=== PATIENT | male | born 1955 | race Caucasian/White ===

== ENCOUNTER → 2019-06-13 | Outpatient (CLI) | payer BC ==
[2019-06-13 12:38] LABS: CREATININE 0.8 mg/dL (0.7-1.3)
== END ==
LOC: CAT 11:20
PROVIDERS: Nurse Practitioner
DX: K57.30 Diverticulosis of large intestine without perforation or abscess without bleeding (principal); K76.89 Other specified diseases of liver; I71.4 Abdominal aortic aneurysm, without rupture; I74.5 Embolism and thrombosis of iliac artery

== ENCOUNTER → 2020-08-12 | Outpatient (CLI) | payer OTHER | LOC: SJCVCIMAG 08:32 | PROVIDERS: ATTEND Internal Medicine Cardiovascular Disease | DX: I73.9 Peripheral vascular disease, unspecified (principal); M79.604 Pain in right leg; M79.605 Pain in left leg; E78.00 Pure hypercholesterolemia, unspecified; F17.201 Nicotine dependence, unspecified, in remission; Z95.828 Presence of other vascular implants and grafts ==

== ENCOUNTER → 2020-08-22 | Outpatient (CLI) | payer OTHER | LOC: SJCVCIMAG 06:35 | PROVIDERS: ATTEND Nuclear Medicine Nuclear Cardiology | DX: M79.601 Pain in right arm (principal); R20.2 Paresthesia of skin; R00.1 Bradycardia, unspecified; F17.200 Nicotine dependence, unspecified, uncomplicated ==